=== PATIENT | male | born 1980 | race Two or more races ===

== ENCOUNTER 2024-02-04 19:40 | Emergency (ER) | payer OTHER ==
[~2024-02-04] VITALS: Ht 185.4 cm; Wt 99.8 kg
[2024-02-04] MEDS ORDERED: hydrOXYzine PAMOATE 50 MG CAPSULE PO STA (21:21)
== END 2024-02-04 22:05 | disposition home or self-care (01) ==
LOC: ER 19:40
DX: F44.6 Conversion disorder with sensory symptom or deficit (principal)